=== PATIENT | female | born 1955 | race Caucasian/White ===

== ENCOUNTER 2019-03-25 09:48 | Emergency (ER) | payer OTHER ==
--- OUTSIDE RECORDS SUMMARY | 2019-03-25 09:51 | XMS REPORT ---
:1955 [facility] [address] [place] [address] Care Team Providers Name Role Phone JAYLEEN JANSEN Unavailable Unavailable Problems This patient has no known problems. Allergies, Adverse Reactions, Alerts This patient has no known allergies or adverse reactions. Medications This patient has no known medications. Results Test Description Test Time Test Comments Text Results Atomic Results Result Comments BASIC METABOLIC PANEL 2016-11-28 06:48:00 Test Item Value Reference Range Comments SODIUM (BEAKER) (test 139 meq/L 136-145 vvvw=434) POTASSIUM (BEAKER) (test 3.9 meq/L 3.5-5.1 lkzf=979) CHLORIDE (BEAKER) (test 109 meq/L 98-107 kixt=882) CO2 (BEAKER) (test igwz=258) 22 meq/L 22-29 BLOOD UREA NITROGEN (BEAKER) 10 mg/dL 7-21 (test dtli=053) CREATININE (BEAKER) (test 0.65 mg/dL 0.57-1.25 zrnr=678) GLUCOSE RANDOM (BEAKER) 91 mg/dL 70-105 (test bnff=921) CALCIUM (BEAKER) (test 8.8 mg/dL 8.4-10.2 aavm=542) EGFR (BEAKER) (test 93 mL/min/1.73 sq m ESTIMATED GFR IS NOT xigm=4044) ACCURATE CREATININE CLEARANCE IN PREDICTING GLOMERULAR FILTRATION RATE. ESTIMATED GFR IS NOT APPLICABLE FOR DIALYSIS PATIENTS. CBC W/PLT COUNT & AUTO [id number] 06:32:00 Test Item Value Reference Range Comments WHITE BLOOD CELL COUNT (BEAKER) (test cenl=138) 8.5 K/ L 4.0-10.0 RED BLOOD CELL COUNT (BEAKER) (test eqbi=059) 3.77 M/ L 4.00-5.00 HEMOGLOBIN (BEAKER) (test aqtr=090) 13.8 GM/DL 12.0-15.0 HEMATOCRIT (BEAKER) (test oewc=516) 40.0 % 36.0-45.0 MEAN CORPUSCULAR VOLUME (BEAKER) (test weol=649) 106.0 fL 82.0-99.0 MEAN CORPUSCULAR HEMOGLOBIN (BEAKER) (test 36.6 pg 27.0-33.0 kafk=292) MEAN CORPUSCULAR HEMOGLOBIN CONC (BEAKER) (test 34.5 GM/DL 32.0-36.0 wvcp=507) RED CELL DISTRIBUTION WIDTH (BEAKER) (test 11.6 % 10.3-14.2 kpjk=878) PLATELET COUNT (BEAKER) (test zcmv=102) 129 K/CU MM 150-430 MEAN PLATELET VOLUME (BEAKER) (test tlun=028) 7.5 fL 6.5-10.5 NUCLEATED RED BLOOD CELLS (BEAKER) (test 0 /100 WBC 0-0 ueed=122) NEUTROPHILS RELATIVE PERCENT (BEAKER) (test 70 % qiaz=770) LYMPHOCYTES RELATIVE PERCENT (BEAKER) (test 19 % xhib=214) MONOCYTES RELATIVE PERCENT (BEAKER) (test 9 % seul=835) EOSINOPHILS RELATIVE PERCENT (BEAKER) (test 2 % rnmp=195) BASOPHILS RELATIVE PERCENT (BEAKER) (test 0 % gqps=061) NEUTROPHILS ABSOLUTE COUNT (BEAKER) (test 5.94 K/ L 1.80-8.00 erbn=159) LYMPHOCYTES ABSOLUTE COUNT (BEAKER) (test 1.57 K/ L 1.48-4.50 uupk=633) MONOCYTES ABSOLUTE COUNT (BEAKER) (test 0.73 K/ L 0.00-1.30 tsjg=614) EOSINOPHILS ABSOLUTE COUNT (BEAKER) (test 0.21 K/ L 0.00-0.50 gaay=613) BASOPHILS ABSOLUTE COUNT (BEAKER) (test 0.04 K/ L 0.00-0.20 acib=807) [id number] 11:25:00 Test Item Value Reference Range Comments MAGNESIUM (BEAKER) (test dwma=224) 2.0 mg/dL 1.6-2.6 CBC (HEMOGRAM ONLY)2016-11-27 01:29:00 Test Item Value Reference Range Comments WHITE BLOOD CELL COUNT (BEAKER) (test vijt=812) 7.6 K/ L 4.0-10.0 RED BLOOD CELL COUNT (BEAKER) (test adcj=979) 3.61 M/ L 4.00-5.00 HEMOGLOBIN (BEAKER) (test kyfc=482) 13.2 GM/DL 12.0-15.0 HEMATOCRIT (BEAKER) (test ceqd=660) 38.7 % 36.0-45.0 MEAN CORPUSCULAR VOLUME (BEAKER) (test pfzh=990) 107.0 fL 82.0-99.0 MEAN CORPUSCULAR HEMOGLOBIN (BEAKER) (test 36.5 pg 27.0-33.0 mxoe=950) MEAN CORPUSCULAR HEMOGLOBIN CONC (BEAKER) (test 34.0 GM/DL 32.0-36.0 hyvr=227) RED CELL DISTRIBUTION WIDTH (BEAKER) (test 11.4 % 10.3-14.2 ndtv=894) PLATELET COUNT (BEAKER) (test titu=574) 125 K/CU MM 150-430 MEAN PLATELET VOLUME (BEAKER) (test wvts=141) 8.0 fL 6.5-10.5 NUCLEATED RED BLOOD CELLS (BEAKER) (test 0 /100 WBC 0-0 uvax=131) 0.00BASIC METABOLIC [id number] 01:24:00 Test Item Value Reference Range Comments SODIUM (BEAKER) (test 137 meq/L 136-145 wzfp=627) POTASSIUM (BEAKER) (test 3.9 meq/L 3.5-5.1 Specimen slightly tvwk=027) hemolyzed CHLORIDE (BEAKER) (test 111 meq/L 98-107 mnuz=570) CO2 (BEAKER) (test 21 meq/L 22-29 laxv=059) BLOOD UREA NITROGEN 11 mg/dL 7-21 (BEAKER) (test aqog=369) CREATININE (BEAKER) (test 0.65 mg/dL 0.57-1.25 Specimen slightly eyho=328) hemolyzed GLUCOSE RANDOM (BEAKER) 126 mg/dL 70-105 (test htka=482) CALCIUM (BEAKER) (test 7.7 mg/dL 8.4-10.2 wmbc=244) EGFR (BEAKER) (test 93 mL/min/1.73 sq m ESTIMATED GFR IS NOT mgzq=0196) ACCURATE CREATININE CLEARANCE IN PREDICTING GLOMERULAR FILTRATION RATE. ESTIMATED GFR IS NOT APPLICABLE FOR DIALYSIS PATIENTS. [id number] 23:26:00 Test Item Value Reference Range Comments ACTIVATED CLOTTING TIME 152 sec TESTED AT [facility] [address] [facility] (test geln=610) [place] [address] [id number] 23:26:00 Test Item Value Reference Range Comments ACTIVATED CLOTTING TIME 296 sec TESTED AT [address] (BEAKER) (test fgdl=891) [place] [address] [id number] 23:26:00 Test Item Value Reference Range Comments ACTIVATED CLOTTING TIME 286 sec TESTED AT [address] (BEAKER) (test qtfo=661) [place] [address] CBC (HEMOGRAM ONLY)2016-11-26 08:02:00 Test Item Value Reference Range Comments WHITE BLOOD CELL COUNT (BEAKER) (test qzme=745) 6.9 K/ L 4.0-10.0 RED BLOOD CELL COUNT (BEAKER) (test wurw=120) 3.78 M/ L 4.00-5.00 HEMOGLOBIN (BEAKER) (test mzbm=395) 13.4 GM/DL 12.0-15.0 HEMATOCRIT (BEAKER) (test asgx=118) 40.4 % 36.0-45.0 MEAN CORPUSCULAR VOLUME (BEAKER) (test abze=350) 107.0 fL 82.0-99.0 MEAN CORPUSCULAR HEMOGLOBIN (BEAKER) (test 35.5 pg 27.0-33.0 kkxk=398) MEAN CORPUSCULAR HEMOGLOBIN CONC (BEAKER) (test 33.2 GM/DL 32.0-36.0 shdp=787) RED CELL DISTRIBUTION WIDTH (BEAKER) (test 11.5 % 10.3-14.2 fdnd=372) PLATELET COUNT (BEAKER) (test ldhp=023) 156 K/CU MM 150-430 MEAN PLATELET VOLUME (BEAKER) (test rxfw=369) 7.7 fL 6.5-10.5 NUCLEATED RED BLOOD CELLS (BEAKER) (test 0 /100 WBC 0-0 ygvo=425) 0.00BASIC METABOLIC [id number] 07:29:00 Test Item Value Reference Range Comments SODIUM (BEAKER) (test 142 meq/L 136-145 gaej=141) POTASSIUM (BEAKER) (test 4.5 meq/L 3.5-5.1 mtjo=315) CHLORIDE (BEAKER) (test 113 meq/L 98-107 zrlb=399) CO2 (BEAKER) (test 23 meq/L 22-29 pzye=217) BLOOD UREA NITROGEN 11 mg/dL 7-21 (BEAKER) (test uukp=667) CREATININE (BEAKER) (test 0.66 mg/dL 0.57-1.25 srnd=723) GLUCOSE RANDOM (BEAKER) 80 mg/dL 70-105 (test hfun=185) CALCIUM (BEAKER) (test 8.1 mg/dL 8.4-10.2 hvfx=368) EGFR (BEAKER) (test 92 mL/min/1.73 sq m ESTIMATED GFR IS NOT birj=2454) ACCURATE CREATININE CLEARANCE IN PREDICTING GLOMERULAR FILTRATION RATE. ESTIMATED GFR IS NOT APPLICABLE FOR DIALYSIS PATIENTS. [id number] 22:10:00 Test Item Value Reference Range Comments MAGNESIUM (BEAKER) (test qsta=660) 1.9 mg/dL 1.6-2.6 BASIC METABOLIC [id number] 22:10:00 Test Item Value Reference Range Comments SODIUM (BEAKER) (test 140 meq/L 136-145 tpjr=860) POTASSIUM (BEAKER) (test 4.0 meq/L 3.5-5.1 xixe=513) CHLORIDE (BEAKER) (test 112 meq/L 98-107 fwzq=164) CO2 (BEAKER) (test 21 meq/L 22-29 hvyz=902) BLOOD UREA NITROGEN 12 mg/dL 7-21 (BEAKER) (test pdzt=040) CREATININE (BEAKER) (test 0.71 mg/dL 0.57-1.25 zwpl=745) GLUCOSE RANDOM (BEAKER) 149 mg/dL 70-105 (test dkyy=493) CALCIUM (BEAKER) (test 7.6 mg/dL 8.4-10.2 ecjx=228) EGFR (BEAKER) (test 84 mL/min/1.73 sq m ESTIMATED GFR IS NOT kejd=9726) ACCURATE CREATININE CLEARANCE IN PREDICTING GLOMERULAR FILTRATION RATE. ESTIMATED GFR IS NOT APPLICABLE FOR DIALYSIS PATIENTS. [id number] 17:18:00 Test Item Value Reference Range Comments ACTIVATED CLOTTING TIME 142 sec TESTED AT [place] [address] [facility] (test zunn=419) [place] [address] [id number] 16:24:00 Test Item Value Reference Range Comments ACTIVATED CLOTTING TIME 157 sec TESTED AT [place] [address] [facility] (BE[facility]) (test xsnr=307) [place] [address] [id number] 16:24:00 Test Item Value Reference Range Comments ACTIVATED CLOTTING TIME 260 sec TESTED AT [place] [address] [facility] ([facility] (test sxov=484) [place] [address] [id number] 16:24:00 Test Item Value Reference Range Comments ACTIVATED CLOTTING TIME 240 sec TESTED AT [address] (BEAKER) (test jxfp=437) [place] [address] [id number] 16:24:00 Test Item Value Reference Range Comments ACTIVATED CLOTTING TIME 255 sec TESTED AT [address] (BEAKER) (test kllp=728) [place] [address] [id number] 16:24:00 Test Item Value Reference Range Comments ACTIVATED CLOTTING TIME 229 sec TESTED AT [address] (BEAKER) (test dsyf=358) [place] [address] [id number] 16:24:00 Test Item Value Reference Range Comments ACTIVATED CLOTTING TIME 214 sec TESTED AT [address] (BEAKER) (test ghmp=062) [place] [address] CBC W/PLT COUNT & AUTO [id number] 11:00:00 Test Item Value Reference Range Comments WHITE BLOOD CELL COUNT (BEAKER) (test xtki=689) 6.0 K/ L 4.0-10.0 RED BLOOD CELL COUNT (BEAKER) (test rwsk=201) 4.42 M/ L 4.00-5.00 HEMOGLOBIN (BEAKER) (test izfk=850) 15.2 GM/DL 12.0-15.0 HEMATOCRIT (BEAKER) (test ptks=588) 46.7 % 36.0-45.0 MEAN CORPUSCULAR VOLUME ([facility]) (test blia=898) 106.0 fL 82.0-99.0 MEAN CORPUSCULAR HEMOGLOBIN (BEAKER) (test 34.4 pg 27.0-33.0 dmzj=726) MEAN CORPUSCULAR HEMOGLOBIN CONC (BEAKER) (test 32.6 GM/DL 32.0-36.0 iqqj=738) RED CELL DISTRIBUTION WIDTH (BEAKER) (test 13.3 % 10.3-14.2 rgwx=064) PLATELET COUNT (BEAKER) (test psxv=004) 188 K/CU MM 150-430 MEAN PLATELET VOLUME (BEAKER) (test thvt=432) 7.9 fL 6.5-10.5 NUCLEATED RED BLOOD CELLS (BEAKER) (test 0 /100 WBC 0-0 hevj=657) NEUTROPHILS RELATIVE PERCENT (BEAKER) (test 59 % wpud=329) LYMPHOCYTES RELATIVE PERCENT (BEAKER) (test 30 % fkua=435) MONOCYTES RELATIVE PERCENT (BEAKER) (test 7 % uhpo=009) EOSINOPHILS RELATIVE PERCENT (BEAKER) (test 3 % lmzu=483) BASOPHILS RELATIVE PERCENT (BEAKER) (test 1 % nzla=193) NEUTROPHILS ABSOLUTE COUNT (BEAKER) (test 3.55 K/ L 1.80-8.00 iypz=149) LYMPHOCYTES ABSOLUTE COUNT (BEAKER) (test 1.82 K/ L 1.48-4.50 dujz=090) MONOCYTES ABSOLUTE COUNT (BEAKER) (test 0.40 K/ L 0.00-1.30 qttm=125) EOSINOPHILS ABSOLUTE COUNT (BEAKER) (test 0.19 K/ L 0.00-0.50 iwwf=824) BASOPHILS ABSOLUTE COUNT (BEAKER) (test 0.05 K/ L 0.00-0.20 yvce=578) 0.00BASIC METABOLIC [id number] 10:51:00 Test Item Value Reference Range Comments SODIUM (BEAKER) (test 141 meq/L 136-145 fivd=286) POTASSIUM (BEAKER) (test 4.0 meq/L 3.5-5.1 bqpf=390) CHLORIDE (BEAKER) (test 109 meq/L 98-107 zalh=660) CO2 (BEAKER) (test 25 meq/L 22-29 bore=587) BLOOD UREA NITROGEN 16 mg/dL 7-21 (BEAKER) (test hsxp=322) CREATININE (BEAKER) (test 0.67 mg/dL 0.57-1.25 ptbe=996) GLUCOSE RANDOM (BEAKER) 87 mg/dL 70-105 (test pjuq=832) CALCIUM (BEAKER) (test 8.7 mg/dL 8.4-10.2 niyy=951) EGFR (BEAKER) (test 90 mL/min/1.73 sq m ESTIMATED GFR IS NOT uzmz=4831) ACCURATE CREATININE CLEARANCE IN PREDICTING GLOMERULAR FILTRATION RATE. ESTIMATED GFR IS NOT APPLICABLE FOR DIALYSIS PATIENTS.
--- OUTSIDE RECORDS SUMMARY | 2019-03-25 09:51 | XMS REPORT | Clinical Summary ---
:1955 Author Organization [facility] Address [address] [place] [address] Care Team Providers Name Role Phone Soo Primary Care Provider Allergies No Known Allergies Medications Medication Sig Dispensed Refills Start Date End Date Status enalapril (VASOTEC) 2.5 Take 2.5 mg by 0 Active MG tablet mouth daily. aspirin 81 MG EC tablet Take 81 mg by 0 Active mouth daily. multivitamin (THERAGRAN) Take 1 tablet by 0 Active tablet mouth daily. magnesium oxide 500 mg Take 500 mg by 0 Active Tab mouth daily. biotin 1 mg tablet Take 1,000 mcg 0 Active by mouth 3 (three) times daily. cyanocobalamin (VITAMIN Take 100 mcg by 0 Active B-12) 100 MCG tablet mouth daily. Active Problems Problem Noted Date Ventricular tachycardia 11/16/2015 Social History Tobacco Use Types Packs/Day Years Used Date Current Every Day Smoker 0.5 5 Tobacco Cessation: Ready to Quit: No; Counseling Given: Yes Alcohol Use Drinks/Week oz/Week Comments Yes Sex Assigned at Date Recorded Not on file Job Start Date Occupation Industry Not on file Not on file Not on file Travel History Travel Start Travel End No recent travel history available. Last Filed Vital Signs Not on file Plan of Treatment Not on file Results Not on fileafter 03/24/2018 Insurance Payer Benefit Plan / Group Subscriber ID Type Phone Address [employer] - [employer] HMO POS QPOS xxxxxxxxxx HMO/POS Advance Directives For more information, please contact:[address] [phone] Code Status Date Activated Date Inactivated Comments Full Code 11/25/2016 9:23 AM 11/28/2016 6:00 PM This code status was determined by: Patient Full Code 01/04/2016 10:29 AM 01/07/2016 8:18 PM This code status was determined by: Patient Full Code 12/22/2015 2:03 PM 12/25/2015 2:02 PM This code status was determined by: Patient Full Code 11/16/2015 9:05 PM 11/21/2015 5:23 PM This code status was determined by: Patient
--- NOTE | 2019-03-25 10:41 | RAD REPORT ---
EXAM DESCRIPTION: CT - Spine Lumbar Wo Con - 03/25/2019 10:27 am CLINICAL HISTORY: Fall, back pain, bilateral lower extremity radiculopathy COMPARISON: None. TECHNIQUE: Thin section axial imaging of the lumbar spine was performed. Sagittal and coronal recon struction images were generated and reviewed. All CT scans are performed using dose optimization technique as appropriate and may include automated exposure control or mA/KV adjustment according to patient size. FINDINGS: Lumbar bodies are normal in height and alignment. No lytic, sclerotic or expansile bone pr ocess. No paraspinal soft tissue mass or hematoma. No pars defects present. Mid and lower lumbar face t joint degenerative changes are present prominent on the right at L4-5. Central canal detail is inhe rently limited. No gross evidence for disc herniation or spinal stenosis. L3-4 and L4-5 disc bulge ch anges are present. No foraminal stenosis identified. SI joint degenerative change present. Bilateral sacral ala fractures are present. No distraction or angulation deformity. No pathologic com ponent. IMPRESSION: Bilateral fractures of the sacral ala. No lumbar fracture. No disc herniation. Disc bulge changes are present at L3-4 and L4-5.
[2019-03-25] MEDS ORDERED: DIAZEPAM 10 MG/2 ML INJ SYRINGE ONE (10:43)
[2019-03-25] MEDS ORDERED: KETOROLAC 30 MG/ML INJ ONE (10:44)
--- NOTE | 2019-03-25 11:13 | EDPHYS ---
Physician Documentation [facility] Name: Elsy Nunez Age: 64 yrs Sex: Female : 1955 Arrival Date: 03/25/2019 Time: 09:52 Bed 8 Private MD: None, None ED Physician Richelle Jung HPI: 03/25 11:10 This 64 yrs old Female presents to ER via Ambulatory with complaints of Fall ma2 Injury. 11:10 Details of fall: The patient fell from seated position. Onset: The symptoms/episode ma2 began/occurred suddenly, 2 week(s) ago. Severity of symptoms: At their worst the symptoms were mild, in the emergency department the symptoms are unchanged. The patient has experienced similar episodes in the past. 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 - Social history:: Smoking status: Patient uses tobacco products, smokes one-half pack cigarettes per day, Patient/guardian denies using alcohol, street drugs, The patient lives with family, . - Ebola Screening: : No symptoms or risks identified at this time. - Family history:: not pertinent. ROS: 11:10 Constitutional: Negative for fever, chills, and weight loss. ma2 11:10 All other systems are negative. Exam: 11:10 Constitutional: This is a well developed, well nourished patient who is awake, alert, ma2 and in no acute distress. Chest/axilla: Normal chest wall appearance and motion. Nontender with no deformity. No lesions are appreciated. Cardiovascular: Regular rate and rhythm with a normal S1 and S2. No gallops, murmurs, or rubs. Normal PMI, no JVD. No pulse deficits. Respiratory: Lungs have equal breath sounds bilaterally, clear to auscultation and percussion. No rales, rhonchi or wheezes noted. No increased work of breathing, no retractions or nasal flaring. Abdomen/GI: Soft, non-tender, with normal bowel sounds. No distension or tympany. No guarding or rebound. No evidence of tenderness throughout. Back: No spinal tenderness. No costovertebral tenderness. Full range of motion. MS/ Extremity: Pulses equal, no cyanosis. Neurovascular intact. Full, normal range of motion. Neuro: Awake and alert, GCS 15, oriented to person, place, time, and situation. Cranial nerves II-XII grossly intact. Motor strength 5/5 in all extremities. Sensory grossly intact. Cerebellar exam normal. Normal gait. Psych: Awake, alert, with orientation to person, place and time. Behavior, mood, and affect are within normal limits. Vital Signs: 09:59 BP 162 / 99; Pulse 94; Resp 16; Temp 97.4; Pulse Ox 98% on R/A; Weight 81.65 kg; Height la1 5 ft. 11 in. (180.34 cm); 11:18 BP 151 / 89; Pulse 89; Resp 16; Temp 97.5; Pulse Ox 98% ; bp 09:59 Body Mass Index 25.10 (81.65 kg, 180.34 cm) la1 [place] Coma Score: 10:28 Eye Response: spontaneous(4). Verbal Response: oriented(5). Motor Response: obeys aa5 commands(6). Total: 15. Trauma Score (Adult): 10:28 Eye Response: spontaneous(1); Verbal Response: oriented(1); Motor Response: obeys aa5 commands(2); Systolic BP: > 89 mm Hg(4); Respiratory Rate: 10 to 29 per min(4); Toni Score: 15; Trauma Score: 12 MDM: 10:08 Patient medically screened. snw 11:10 Differential diagnosis: abrasion, contusion, fracture, laceration. Data reviewed: vital ma2 signs, nurses notes. Counseling: I had a detailed discussion with the patient and/or guardian regarding: the historical points, exam findings, and any diagnostic results supporting the discharge/admit diagnosis, the presence of at least one elevated blood pressure reading (>120/80) during this emergency department visit, the need for outpatient follow up. Response to treatment: the patient's symptoms have markedly improved after treatment. 03/25 10:12 Order name: CT Lumbar Spine Wo Con; Complete Time: 11:07 snw Administered Medications: 10:40 Drug: TORadol 60 mg Route: IM; Site: right vastus lateralis; bp 11:19 Follow up: Response: No adverse reaction; Pain is decreased bp 10:40 Drug: Valium 10 mg {Note: given im.} Route: IVP; Site: Other; bp 11:19 Follow up: Response: No adverse reaction; Pain is decreased bp Disposition: 03/25/19 11:13 Discharged to Home. Impression: Fracture of sacrum. - Condition is Stable. - Discharge Instructions: Simple Pelvic Fracture, Adult. - Prescriptions for Tylenol- Codeine #3 300-30 mg Oral Tablet - take 2 tablet by ORAL route every 6 hours As needed; 30 tablet. Valium 5 mg Oral Tablet - take 1 tablet by ORAL route every 8 hours As needed; 20 tablet. Tramadol 50 mg Oral Tablet - take 1 tablet by ORAL route every 8 hours as needed; 12 tablet. - Medication Reconciliation Form, Thank You Letter, Antibiotic Education, Prescription Opioid Use form. - Follow up: Kerwin Chase MD; When: Tomorrow; Reason: Continuance of care. Signatures: Dispatcher [employer] EDMS Diana Brady, JUAN-C PIECE WORK CHECKER-[employer] Macho Alexander RN RN laMohinder Ricardo RN RN bp Richelle Jung MD MD ma2 Corrections: (The following items were deleted from the chart) 11:45 11:13 03/25/2019 11:13 Discharged to Home. Impression: Fracture of sacrum. Condition is bp Stable. Forms are Medication Reconciliation Form, Thank You Letter, Antibiotic Education, Prescription Opioid Use. Follow up: Kerwin Chase; When: Tomorrow; Reason: Continuance of care. ma2
--- NOTE | 2019-03-25 11:13 | ER ---
Nurse's Notes [facility] Name: Elsy Nunez Age: 64 yrs Sex: Female : 1955 Arrival Date: 03/25/2019 Time: 09:52 Bed 8 Private MD: None, None Diagnosis: Fracture of sacrum Presentation: 03/25 09:57 Presenting complaint: Patient states: I fell 3.5 weeks ago from standing, initially my la1 left buttox hurt, then my right. Now they both hurt and Tuesday night I started having numbness in both of my feet and coming up my legs but not above my knee. Transition of care: patient was not received from another setting of care. Onset of symptoms was March 25, 2019. Risk Assessment: Do you want to hurt yourself or someone else? Patient reports no desire to harm self or others. Initial Sepsis Screen: Does the patient meet any 2 criteria? No. Patient's initial sepsis screen is negative. Does the patient have a suspected source of infection? No. Patient's initial sepsis screen is negative. Care prior to arrival: None. 09:57 Method Of Arrival: Ambulatory la1 09:57 Acuity: CARSON 3 la1 Triage Assessment: 10:00 General: Appears in no apparent distress. comfortable, Behavior is cooperative, bp appropriate for age, anxious. Pain: Complains of pain in pelvis. EENT: No deficits noted. Neuro: No deficits noted. Cardiovascular: No deficits noted. Respiratory: No deficits noted. GI: No signs and/or symptoms were reported involving the gastrointestinal system. : No signs and/or symptoms were reported regarding the genitourinary system. Derm: No deficits noted. Musculoskeletal: No deficits noted. Historical: - Allergies: 09:59 No Known Allergies; la1 - PMHx: 09:59 cardiac sarcoidosis; la1 - PSHx: 09:59 implanted pacemaker/defib; la1 - Immunization history:: Adult Immunizations up to date. - Social history:: Smoking status: Patient uses tobacco products, smokes one-half pack cigarettes per day, Patient/guardian denies using alcohol, street drugs, The patient lives with family, . - Ebola Screening: : No symptoms or risks identified at this time. - Family history:: not pertinent. Screenin:28 Abuse screen: Denies threats or abuse. Denies injuries from another. Tuberculosis aa5 screening: No symptoms or risk factors identified. 11:20 Nutritional screening: No deficits noted. Fall Risk None identified. bp Assessment: 10:00 General: SEE TRIAGE NOTE. bp 11:18 Reassessment: PT D/C HOME VIA W/C WITH FAMILY, DX WITH FX OF SACRUM. bp Vital Signs: 09:59 BP 162 / 99; Pulse 94; Resp 16; Temp 97.4; Pulse Ox 98% on R/A; Weight 81.65 kg; Height la1 5 ft. 11 in. (180.34 cm); 11:18 BP 151 / 89; Pulse 89; Resp 16; Temp 97.5; Pulse Ox 98% ; bp 09:59 Body Mass Index 25.10 (81.65 kg, 180.34 cm) la1 [facility] Score: 10:28 Eye Response: spontaneous(4). Verbal Response: oriented(5). Motor Response: obeys aa5 commands(6). Total: 15. Trauma Score (Adult): 10:28 Eye Response: spontaneous(1); Verbal Response: oriented(1); Motor Response: obeys aa5 commands(2); Systolic BP: > 89 mm Hg(4); Respiratory Rate: 10 to 29 per min(4); Toni Score: 15; Trauma Score: 12 ED Course: 09:52 Patient arrived in ED. mr 09:53 None, None is Private Physician. mr 09:58 Triage completed. la1 10:00 Arm band placed on right wrist. la1 10:08 Diana Brady F[facility]-C is [facility]. snw 10:08 Richelle Jung MD is Attending Physician. snw 10:24 CT completed. Patient tolerated procedure well. Patient moved back from CT. bq 10:28 CT Lumbar Spine Wo Con In Process Unspecified. EDMS 10:28 Patient has correct armband on for positive identification. Bed in low position. Call aa5 light in reach. Side rails up X 1. 11:11 Kerwin Chase MD is Referral Physician. ma2 11:18 No provider procedures requiring assistance completed. Patient did not have IV access bp during this emergency room visit. Administered Medications: 10:40 Drug: TORadol 60 mg Route: IM; Site: right vastus lateralis; bp 11:19 Follow up: Response: No adverse reaction; Pain is decreased bp 10:40 Drug: Valium 10 mg {Note: given im.} Route: IVP; Site: Other; bp 11:19 Follow up: Response: No adverse reaction; Pain is decreased bp Intake: 10:28 PO: 0ml; Total: 0ml. aa5 Output: 10:28 Urine: 0ml; Total: 0ml. aa5 Outcome: 11:13 Discharge ordered by . [email or web address] 11:19 Discharged to home via wheelchair, with family. bp 11:19 Condition: stable 11:19 Discharge instructions given to patient, Instructed on discharge instructions, follow up and referral plans. medication usage, Demonstrated understanding of instructions, follow-up care, medications, Prescriptions given X 3. 11:45 Patient left the ED. bp Signatures: Dispatcher [employer] EDMS Diana Brady, STRIP STAMP STRAIGHTENER-C STRIP STAMP STRAIGHTENER-Csnw JordonTamara Dulce Sher Sylvia Panchal, TANISHA GARAY aa5 Macho Alexander RN RN la1 Peltier, Brian, RN RN bp Alzahri, Mohammad, MD MD ma2 Corrections: (The following items were deleted from the chart) 15:58 10:27 Sylvia Panchal, RN is Primary Nurse. aa5 aa5
[2019-03-25 11:52] VITALS: O2SAT 98
[2019-03-25 11:53] VITALS: BP 151/89; TEMP 97.5
== END 2019-03-25 11:45 | disposition home or self-care (01) ==
LOC: ER 09:48
DX: S32.10XA Unspecified fracture of sacrum, initial encounter for closed fracture (principal); W17.89XA Other fall from one level to another, initial encounter; Y93.9 Activity, unspecified; Y92.9 Unspecified place or not applicable; Z95.810 Presence of automatic (implantable) cardiac defibrillator; F17.210 Nicotine dependence, cigarettes, uncomplicated
CPT/HCPCS: 72131; 96372; 96374; 99284; J3360